=== PATIENT | female | born 1950 | race Caucasian/White ===

== ENCOUNTER 2017-09-07 13:15 | Day surgery (SDC) | payer MEDICARE, OTHER ==
[2017-09-01 10:37] VITALS: BMI 34.0
[~2017-09-07 13:15] MED LIST: LACTATED RINGERS 1,000 ML IV SCH; LIDOCAINE 1% 20 ML VIAL (10MG/ML) FOR IV START INTRADERMA PRN
[2017-09-07 13:43] VITALS: RESP 16; TEMP 97.8
[2017-09-07] MEDS ORDERED: PROPOFOL 10 MG/ML 20 ML VIAL IV ONE (14:09)
[2017-09-07] MEDS ORDERED: LIDOCAINE 1% INJ 10MG/ML (20 ML MDV) ONE (14:09)
--- NOTE | 2017-09-07 14:44 | P.PCN ---
Date of Procedure: 09/07/17 Procedure(s) Performed: procedure: Colonoscopy and polypectomy. Preoperative diagnosis: Screening for neoplasia, patient has history of polyps. Postoperative diagnosis: 1. Mild sigmoid diverticulosis with no evidence of acute diverticulitis or strictures. 2. Small right colon snared but no large polyps or cancer. Preparation: HalfLytely prep. Sedation: Was provided by anesthesia. Brief clinical history: The patient is a 66-year-old female who is scheduled for this evaluation for screening for neoplasia because of history of polyps. She had two prior exams the last was around 6-7 years ago. She has no abdominal complaints, bleeding or anemia. Procedure: With the patient on her left lateral decubitus position and after informed consent and adequate sedation, the perianal area was inspected and it did not show any fissures or fistulas. There were no masses felt on digital rectal examination. The Olympus CFQ 160L video colonoscope was then inserted in the rectum in the usual fashion and advanced to the cecum. There was occasional diverticular orifice seen scattered in the sigmoid with no evidence of acute diverticulitis or strictures. There was a small right colon polyp which was snared and retrieved by suction but there were no large polyps or cancer. I retroflexed the endoscope in the rectum before the endoscope was withdrawn. The patient tolerated the procedure well. Plan: The patient was reassured. Discussed dietary measures. She will follow- up with you as planned and I recommended repeat exam in 5 years.
[2017-09-07 15:02] VITALS: BP 137/78; PULSE 70
== END 2017-09-07 15:42 | disposition home or self-care (01) ==
LOC: ORWHC2ENDO 13:15
DX: Z12.11 Encounter for screening for malignant neoplasm of colon (principal); K63.5 Polyp of colon; K57.30 Diverticulosis of large intestine without perforation or abscess without bleeding; Z86.010 Personal history of colon polyps; I25.10 Atherosclerotic heart disease of native coronary artery without angina pectoris; I10 Essential (primary) hypertension; E78.5 Hyperlipidemia, unspecified; M19.90 Unspecified osteoarthritis, unspecified site; Z88.0 Allergy status to penicillin; I25.2 Old myocardial infarction; Z72.0 Tobacco use; Z95.5 Presence of coronary angioplasty implant and graft; Z79.82 Long term (current) use of aspirin; Z79.899 Other long term (current) drug therapy
CPT/HCPCS: 93005; 45385; J2001; J2704; 88305

== ENCOUNTER → 2019-05-04 | Outpatient (CLI) | payer MEDICARE, OTHER ==
--- NOTE | 2019-05-04 14:55 | MR ---
EXAMINATION TYPE: MR humerus RT wo con DATE OF EXAM: 05/04/2019 COMPARISON: None HISTORY: Pain in right shoulder, no known injury Standard multiplanar, multisequence MRI departmental protocol Multiplanar, multisequence images of the humerus were acquired. Diffusion weighted imaging was perfor med. FINDINGS: Right humerus is intact without tear or dislocation. No bony lesion is identified. Bone mar row signal is within normal limits. No cortical thickening seen. No soft tissue mass or fluid collect ion seen. IMPRESSION: Study of the right humerus.
--- NOTE | 2019-05-04 15:11 | MR ---
EXAMINATION TYPE: MR shoulder RT wo con DATE OF EXAM: 05/04/2019 COMPARISON: NONE HISTORY: Pain in right shoulder, no known injury. Pain for one year with difficulty raising arm overh ead with no relief from physical therapy TECHNIQUE: Multiplanar, multisequence imaging of the right shoulder is performed without contrast. FINDINGS: Rotator Cuff: There is focal articular surface tear of the distal supraspinatus tendon measuring 4 to 5 mm transversely coronal image 8 and 6 mm AP diameter sagittal image 21 . Infraspinatus tendon is i ntact. Subscapularis tendon is felt intact. Rotator cuff muscle bulk is preserved. Acromioclavicular Joint: Fairly severe narrowing with mild to moderate spurring and capsular hypertro phy. Joint effusion extends inferiorly. Loss of the underlying fat plane suggests impingement, correl ate clinically. Glenohumeral Joint: Moderate narrowing without significant spurring. Small to moderate glenohumeral j oint effusion. Labrum: Blunted appearance with increased signal consistent with degenerative tear superior labrum. Biceps Tendon: The long head of biceps is in normal location within bicipital groove. Bone marrow signal: Subchondral cystic change superolateral humeral head. Other: No additional significant abnormality is appreciated. IMPRESSION: 1. Significant articular surface tear supraspinatus tendon. 2. Moderate to severe glenohumeral and AC joint arthropathy with probable underlying impingement. Cor relate clinically.
== END | disposition home or self-care (01) ==
LOC: RADMRIMAIN 12:43
PROVIDERS: ATTEND Nurse Practitioner
DX: M75.101 Unspecified rotator cuff tear or rupture of right shoulder, not specified as traumatic (principal); M79.601 Pain in right arm; M19.011 Primary osteoarthritis, right shoulder

== ENCOUNTER 2022-06-13 08:46 | Day surgery (SDC) | payer MEDICARE, OTHER ==
[~2022-06-13 08:46] MED LIST changes: -LIDOCAINE 1% 20 ML VIAL (10MG/ML) FOR IV START INTRADERMA PRN
[2022-06-13 09:04] VITALS: TEMP 98
[2022-06-13] MEDS ORDERED: PROPOFOL 10 MG/ML 20 ML VIAL IV ONE (10:06)
--- NOTE | 2022-06-13 10:20 | P.PCN ---
Date of Procedure: 06/13/22 Procedure(s) Performed: BRIEF HISTORY: Patient is a 71-year-old pleasant white female scheduled for an elective colonoscopy as a part of the lesion of prior history of colon polyps. He lately she is been having chronic postprandial diarrhea with 3-4 loose watery bowel movements daily. She also has family history of colon cancer diagnosed in her father at age 70. PROCEDURE PERFORMED: Colonoscopy with biopsy and snare polypectomy. PREOPERATIVE DIAGNOSIS: History of colon polyps/family history of colon cancer/chronic diarrhea. IV sedation per Anesthesia. PROCEDURE: After informed consent was obtained, the patient, was brought into the endoscopy unit. IV sedation was administered by Anesthesia under continuous monitoring. Digital rectal examination was normal. Initially the Olympus CF-160 flexible video colonoscope was then inserted in the rectum, gradually advanced into the cecum without any difficulty. Careful examination was performed as the scope was gradually being withdrawn. Ileocecal valve and the appendiceal orifice were visualized and appeared normal. Prep was excellent. Mucosa of the cecum, ascending colon, transverse colon, appeared normal. The descending colon there was a 7 mm polyp that was removed by snare polypectomy. In the sigmoid colon there was a 3 mm polyp that was removed by cold biopsy. Also random biopsies were done from ascending and descending colon to rule out metastatic/collagenous colitis. Rest of the descending colon, sigmoid colon, and rectum appeared normal. Retroflexion was performed in the rectum and no lesions were seen. The patient tolerated the procedure well. IMPRESSION: 7 mm descending colon polyp status post polypectomy 3 mm sigmoid: Polyp status post cold biopsy RECOMMENDATIONS: Findings of this examination were discussed with the patient as well as her family.. She was advised to follow with the biopsy results. If the biopsy results adenoma she can have a repeat colonoscopy in 5 years. In regards to the diarrhea she was advised to use [id number] Imodium as needed. Follow up in office if she has worsening symptoms
[2022-06-13 10:47] VITALS: BP 140/78; PULSE 84; RESP 15
== END 2022-06-13 11:15 | disposition home or self-care (01) ==
LOC: ORWHC2ENDO 08:46
PROVIDERS: ATTEND Internal Medicine Gastroenterology
DX: D12.4 Benign neoplasm of descending colon (principal); D12.5 Benign neoplasm of sigmoid colon; I25.10 Atherosclerotic heart disease of native coronary artery without angina pectoris; I10 Essential (primary) hypertension; E78.5 Hyperlipidemia, unspecified; Z80.0 Family history of malignant neoplasm of digestive organs; Z95.5 Presence of coronary angioplasty implant and graft; Z88.0 Allergy status to penicillin; Z79.899 Other long term (current) drug therapy
CPT/HCPCS: 45385; 45380; 88305; J2704